=== PATIENT | male | born 1950 | race Caucasian/White ===

== ENCOUNTER 2017-01-03 07:12 | Day surgery (SDC) | payer OTHER ==
[~2017-01-03] VITALS: Ht 177.8 cm; Wt 108.9 kg
[~2017-01-03 07:12] MED LIST: 0.9% Sodium Chloride 1,000 ML IV SCH; ATOR20TA PO; GLPZ5T PO; INSU100V7 SUBQ; LOSA25TA21 PO; METF1000 PO; Sodium Chloride LOK Flush 10 mL Syringe IV PRN; fentaNYL-PF 50 mCg/mL 2 mL Inj IVPUSH PRN
[2017-01-03 07:25] VITALS: BP 133/76; PULSE 72; RESP 16; O2SAT 97
[2017-01-03 09:04] VITALS: BP 121/68; PULSE 58; RESP 13; O2SAT 94
[2017-01-03 09:20] VITALS: BP 117/65; PULSE 60; RESP 14; O2SAT 96
--- NOTE | 2017-01-03 09:28 | ENDO ---
[address] [address] ENDOSCOPY PROCEDURE PATIENT: RAMILA GRULLON : 1950 MR#: [id number] ADMIT: 01/03/2017 JOB ID: [id number] PROCEDURE: Colonoscopy with hot snare polypectomy x9, and with biopsy. PREOPERATIVE DIAGNOSIS(ES): Diarrhea. POSTOPERATIVE DIAGNOSIS(ES): 1. Nine colon polyps removed, largest size 3 cm in diameter. Status post hot snare polypectomy and an endoloop that was placed pre-polypectomy on a descending colon polyp. 2. Mild sigmoid diverticulosis. 3. Very difficult colonoscopy given the fact that there were multiple polyps and redundancy throughout the entire colon, status post random biopsy of the colon and TI performed. ANESTHESIA: Fentanyl 175 mcg, Versed 8 mg IV administered. COMPLICATIONS: None. BLOOD LOSS: Minimal. DESCRIPTION OF PROCEDURE: After risks and benefits were explained to the patient, informed consent was obtained. After anesthesia administered, colonoscope was inserted from the rectum to the terminal ileum. Mucosa carefully examined. Prep of the patient was fair. After procedure was done, the scope withdrawn at the end of the procedure. FINDINGS: Upon inspection of the anus, no masses, hemorrhoids, ulcers, or fissures that were seen. Throughout the entire examination, there were nine total polyps removed by hot snare polypectomy. There was a descending colon 3 cm polyp, another descending colon polyp, ascending colon polyp x2, and five sigmoid colon polyps. All removed by hot snare polypectomy. The 3 cm descending colon polyp was applied with an endoloop prior to the polypectomy site. Mild sigmoid diverticulosis was seen. This was very difficult given the redundancy and the multiple polyps that were seen. Biopsies taken at TI, random colon. Retroflexion was normal. IMPRESSION: 1. Nine total polyps, largest size 3 cm in size, status post endoloop and hot snare polypectomy x9. 2. Mild sigmoid diverticulosis. 3. Random biopsies taken at TI and throughout the entire colon given the fact the patient had diarrhea. RECOMMENDATIONS: Await pathology results. Repeat colonoscopy in six months given the multiple polyps that were seen. Follow up in the GI clinic with Horacio Yoon.
--- NOTE | 2017-01-04 13:48 | PATH ---
SURGICAL PATHOLOGY Attending Physician:Sam Fay MD CASE STATUS: Signed Out PATIENT NAME: SAM GRULLON PID: [id number] : 1950 DATE COLLECTED:01/03/2017 18:43 SPECIMEN: 1: Colon, Biopsy 2: Colon, Biopsy 3: Colon, Biopsy 4: Colon, Biopsy 5: Colon, Biopsy 6: Ileum, Biopsy 7: Colon, Biopsy CLINICAL HISTORY: 1). DESCENDING POLYP X1 #1 2). BASE OF DESCENDING POLYP BIOPSY 3). SIGMOID POLYPS X3 4). DESCENDING POLP X1 #2 5). ASCENDING POLYP X2 6). TERMINAL ILEUM BIOPSY 7). RANDOM COLON BIOPSY FINAL DIAGNOSIS: 1.DESCENDING COLON POLYP #1: POLYPOID MIXED TUBULAR AND VILLIFORM ADENOMA. 2.BASE OF DESCENDING POLYP BIOPSY: SMALL FRAGMENT OF NORMAL-APPEARING COLON MUCOSA. 3.SIGMOID COLON POLYPS: MIXED TUBULAR AND VILLIFORM ADENOMA INVOLVING MULTIPLE BIOPSY FRAGMENTS. HYPERPLASTIC POLYP INVOLVING SINGLE BIOPSY FRAGMENT. 4.DESCENDING COLON POLYP #2: MIXED TUBULAR AND VILLIFORM ADENOMA. 5.ASCENDING COLON POLYP: TUBULAR ADENOMA INVOLVING MULTIPLE BIOPSY FRAGMENTS. SESSILE SERRATED ADENOMA INVOLVING SINGLE BIOPSY FRAGMENT. 6.TERMINAL ILEUM BIOPSY: FRAGMENT OF NORMAL SMALL BOWEL MUCOSA. Negative for granulomas. Negative for significant inflammation, dysplasia and malignancy. 7.RANDOM COLON BIOPSIES: FRAGMENTS OF NORMAL-APPEARING COLON MUCOSA. Negative for significant architectural distortion. Negative for significant inflammation, dysplasia and malignancy. [id number] GROSS DESCRIPTION: The specimen is received in seven formalin filled containers labeled with the patient's name. 1). The specimen a sublabeled "descending polyp #1" and consists of 2 portions of tissue which aggregate to 1.2 x 1.2 x 1.1 CM. The smallest piece is entirely submitted in cassettes 1A. The largest piece is trisected and entirely submitted in cassette 1B. 2). The specimen is sublabeled "base of descending polyp" and consists of an extremely tiny less than 0.1 CM portion of tissue which is entirely submitted in cassette 2A. 3). The specimen is sublabeled "sigmoid polyps x3" and consists of multiple portions of tissue which aggregate to 2.0 x 1.1 x 1.0 CM. The smallest portions are in entirely submitted in cassette 3A. The 2 largest pieces are sectioned into multiple pieces and entirely submitted in cassette 3B. 4). The specimen is sublabeled "descending polyp #2" and consists of a 1.0 x 0.6 x 0.6 CM portion of tissue which is sectioned into 3 pieces and entirely submitted in cassette 4A. 5). The specimen is sublabeled "ascending polyp" and consists of multiple portions of tissue which aggregate to 0.1 x 0.5 x 0.4 CM. The specimen is entirely submitted in cassette 5A. 6). The specimen is sublabeled "terminal ileum" and consists of a 0.3 x 0.2 x 0.2 CM portion of tissue which is entirely submitted in cassette 6A. 7). The specimen is sublabeled "random colon" and consists of 5 portions of tissue which aggregate to 0.4 x 0.4 x 0.2 CM. The specimen is entirely submitted in cassette 7A. 01/03/2017 DAC MICRO DESCRIPTION: See diagnosis. ICD-9 CODES: CPT CODES: 1: 73868 2: 77502 3: 11256 4: 39633 5: 80253 6: 51196 7: 27601 Electronically Signed Out Jeremiah Jones MD [facility]ology [facility] [address] [facility], [place] [address] Technical component performed at [facility], [facility] [address], [place], [address]
== END 2017-01-03 23:59 | disposition home or self-care (01) ==
LOC: END 07:12
PROVIDERS: ATTEND Internal Medicine Gastroenterology
DX: Z12.11 Encounter for screening for malignant neoplasm of colon (principal); D12.2 Benign neoplasm of ascending colon; D12.5 Benign neoplasm of sigmoid colon; D12.3 Benign neoplasm of transverse colon; K57.30 Diverticulosis of large intestine without perforation or abscess without bleeding; E11.9 Type 2 diabetes mellitus without complications; I10 Essential (primary) hypertension; E78.5 Hyperlipidemia, unspecified; Z79.84 Long term (current) use of oral hypoglycemic drugs; Z79.4 Long term (current) use of insulin
CPT/HCPCS: 45380; 45385; J7030